=== PATIENT | female | born 1990 | race Two or more races ===

== ENCOUNTER 2017-03-07 03:35 | Emergency (ER) | payer SELFPAY ==
--- NOTE | ~2017-03-07 | CT71 ---
[facility] A Service [facility] RADIOLOGY TEXT RESULTS PATIENT: ELSY CARDENAS LOCATION: SED : 89 UNIT #: [id number] AGE: [address]: Rickie Schneider MD SEX: F ORDER DR: [id number] [place] [id number] E MR#: [id number] Acc #: [id number] NAME: ELSY CARDENAS : 1990 SEX: F STUDY DATE/TIME: 03/07/2017 4:30 UNIT: SED ROOM: STUDY DESCRIPTION: CT Head Wo Contrast Attending Physician: Rickie Schneider M.D. Ordering Physician: Rickie Schneider M.D. Primary Care Physician: Primary Care Physician No MEDICAL IMAGING REPORT This report is preliminary unless electronic signature is present. EXAM CT head INDICATION Headache for [address] head without contrast. This CT exam was performed with one or more of the following radiation dose reduction techniques: automatic exposure control, adjustment of mA and/or kV according to patient size, and iterative reconstruction. COMPARISON None available. FINDINGS Axial noncontrast images were obtained from the skull base to the vertex. Ventricular size and configuration are normal. There is no evidence of acute infarct or hemorrhage. There are no extraaxial fluid collections. No mass lesion or mass effect is seen. There are no skull fractures. There is some motion artifact which degrades image quality. IMPRESSION Normal noncontrast head CT. Dictated by... Sam Marks M.D. THIS IS AN ELECTRONICALLY VERIFIED REPORT Sam Marks M.D. at 03/07/2017 5:43 AM [facility] A Service [facility] RADIOLOGY TEXT RESULTS PATIENT: ELSY CARDENAS LOCATION: SED : 89 UNIT #: [id number] AGE: [address]: Rickie Schneider MD SEX: F ORDER DR: ANDREW/jerome TD: 03/07/2017 05:04 JOB #: [id number] MEDICAL IMAGING REPORT Page 1 of 1
[2017-03-07 04:15] LABS: BASOPHIL% 0.4 % (0-2.5); DIFF IND NO; EOSINOPHIL% 0.4 % (0.0-7.0); HEMATOCRIT 39.7 % (35.0-45.0); HEMOGLOBIN 13.6 gm/dL (12.0-16.0); LYMPHOCYTE# 1.1 X10e3 (1.0-3.5); LYMPHOCYTE% 16.3 % (17.0-45.0); MEAN CELL VOLUME 90.3 FL (83-96); MEAN CORPUSCULAR HGB CONC 34.3 g/dL (30-36); MONOCYTE# 0.2 X10e3 (0-1.0); NEUTROPHIL# 5.4 X10e3 (1.5-7.1); NEUTROPHIL% 79.9 % (40-75); PLATELET COUNT 151 X10e3 (140-420); RED BLOOD COUNT 4.39 X10e (3.90-5.30); RED CELL DISTRIBUTION WIDTH 12.9 % (11.0-15.5); WHITE BLOOD COUNT 6.8 X10e3 (4.0-10.5)
[2017-03-07 04:30] LABS: ALBUMIN SERUM 4.7 g/dL (3.5-5.0); ALKALINE PHOSPHATASE 79 U/L (32-92); ALT (SGPT) 16 U/L (10-40); AST (SGOT) 17 U/L (10-42); BILIRUBIN,TOTAL 0.6 mg/dL (0.2-2.0); BLOOD UREA NITROGEN 18 mg/dL (9-23); CARBON DIOXIDE 25 mmol/L (22-31); CHLORIDE 108 mmol/L (100-111); CREATININE SERUM 0.5 mg/dL (0.6-1.4); GLOM FILT RATE Estimated 132.7 mL/min (>60); GLUCOSE FASTING 117 mg/dL (70-110); LIPASE 40 U/L (22-51); POTASSIUM 3.7 mmol/L (3.5-5.1); PROTEIN TOTAL SERUM 7.4 g/dL (6.0-8.3); SODIUM 139 mmol/L (135-145)
[2017-03-07 04:32] LABS: BILIRUBIN, DIRECT <0.1 mg/dL (0.0-0.2); BILIRUBIN,INDIRECT 0.5 mg/dL (0.0-0.9)
== END 2017-03-07 04:48 | disposition home or self-care (01) ==
LOC: SED 03:35
PROVIDERS: Emergency Medicine
DX: R11.2 Nausea with vomiting, unspecified (principal)
CPT/HCPCS: 36415; 70450; 80048; 80076; 83690; 84703; 85025; 96361; 96374; 96375; 99284; J0780; J1200